=== PATIENT | female | born 1960 | race Hispanic/Latino ===

== ENCOUNTER 2020-02-23 13:45 | Emergency (ER) | payer OTHER ==
[2020-02-24 14:49] LABS: SARS-CoV-2 by NAA DETECTED (NotDetected)
[2020-02-24 14:50] LABS: SARS-CoV-2 MS2 Positive; SARS-CoV-2 N Gene Positive; SARS-CoV-2 S Gene Positive; SARS-CoV-2 orf1ab Positive
== END 2020-02-23 15:01 | disposition home or self-care (01) ==
LOC: ERS 13:45
DX: U07.1 COVID-19 (principal)
CPT/HCPCS: 87635; 99283; U0003